=== PATIENT | male | born 1950 | race Caucasian/White ===

== ENCOUNTER 2018-08-07 19:50 | Inpatient (IN) | payer OTHER ==
[~2018-08-07] VITALS: Ht 175.3 cm; Wt 112.2 kg
--- NOTE | 2018-08-07 20:09 | NUR ---
PER MEDIC PT WAS A FACILITY AND STS THAT HIS ANKLE EDEMA HAS BEEN INCREASING. PT STS THAT HE WAS AT [place] THREE DAYS AGO FOR EDEMA. PT STS THAT HE FEELS HE IS NOT BEING TAKEN CARE OF AT PREVIOUS HOME AND HOSPITALS. PT STS THAT HE HAS BEEN HAVING INCREASING PEDAL EDEMA. +CAP REFILL IN BILATERAL LOWER EXTREMITES. PT STS THAT HE IS HAVING "ALL OVER BODY PAIN". PT STS THAT HIS MAIN CONCERN IS THAT HIS ANKLES ARE SWELLING. PT HAS SOME LABORED BREATHING AND PLACED ON NC 3L. PT STS THAT HE HAS SOME DIZZINESS BUT THAT IT IS "NORMAL" FOR HIM. PT DENIES ANY TEMP. PT HAS HAD A NON PRODUCTIVE COUGH. PT STS HE IS ON OXYGEN AT HOME APPROX 2-3L. PT HAS ECCHYMOSIS NOTED ON RIGTH AC. BANDAGE ON LEFT ANTERIOR FOOT. DR. GRAHAM AT BEDSIDE FOR MSE.
--- NOTE | 2018-08-07 20:28 | NUR ---
LAB AT BEDSIDE. EMT AT BEDSIDE.
--- NOTE | 2018-08-07 20:42 | NUR ---
SEROUS FLUID NOTED ON BILATER ANKLES. PT STS THAT THE FLUID HAS BEEN COMING FROM HIS SKIN FOR THREE DAYS. ABDOMINAL DISTENTION NOTED. NO ECCHYNOSIS NOTED ON ABDOMEN.
[2018-08-07] MEDS ORDERED: ZITHROMAX Z-PA250 MG PO (20:47)
[2018-08-07] MEDS ORDERED: APAP500 MG PO (20:47)
[2018-08-07] MEDS ORDERED: DILAUDID2 MG PO (20:48)
[2018-08-07] MEDS ORDERED: TRAMADOL HCL50 MG PO (20:48)
[2018-08-07] MEDS ORDERED: ATROVENT H0.017 MG/1 (20:50)
[2018-08-07] MEDS ORDERED: ALBUTEROL0.63 MG/3 (20:50)
[2018-08-07 20:51] LABS: BASOPHIL % 0.4 % (0-2); PLATELET COUNT 126 x10^3mcL (130-400)
[2018-08-07] MEDS ORDERED: ELIQUIS2.5 MG PO (20:51)
[2018-08-07] MEDS ORDERED: LIPI10 PO (20:53)
[2018-08-07] MEDS ORDERED: B-121000 MC4 PO (20:54)
[2018-08-07] MEDS ORDERED: VAL10 PO (20:55)
[2018-08-07] MEDS ORDERED: STOOL SOFTENER PO (20:56)
[2018-08-07] MEDS ORDERED: ISOSORBIDE MONO30 MG PO (20:56)
[2018-08-07] MEDS ORDERED: LASIX20 MG PO (20:56)
[2018-08-07] MEDS ORDERED: LACTULOSE10 GM/152 PO (20:56)
[2018-08-07] MEDS ORDERED: LATANOPROST2.5 ML OP (20:57)
[2018-08-07] MEDS ORDERED: CLARITIN10 MG PO (20:57)
[2018-08-07] MEDS ORDERED: MULTI-VITAMINS1 TAB PO (20:58)
[2018-08-07] MEDS ORDERED: TOPROL XL25 MG PO (20:58)
[2018-08-07] MEDS ORDERED: LOSARTAN POTASS25 M1 PO (20:58)
[2018-08-07] MEDS ORDERED: PROTONIX40 MG PO (20:59)
[2018-08-07] MEDS ORDERED: NITROGLYCERIN0.4 MG SL (20:59)
[2018-08-07 21:00] LABS: CALCIUM 8.2 mg/dL (8.5-10.1); CARBON DIOXIDE 39.5 mmol/L (21-32); CHLORIDE SERUM 104 mmol/L (98-107); CREATININE SERUM 0.8 mg/dL (0.7-1.3); GFR1 > 60 mL/min; GLUCOSE SERUM 177 mg/dL (74-106); POTASSIUM SERUM 3.9 mmol/L (3.5-5.1); SODIUM SERUM 145 mmol/L (136-145)
[2018-08-07] MEDS ORDERED: CARAFATE1 GM PO (21:00)
[2018-08-07] MEDS ORDERED: PREDNISONE20 MG PO (21:00)
[2018-08-07 21:05] LABS: ALKALINE PHOSPHATASE 55 U/L (46-116); ALT/SGPT 65 U/L (16-63); AST/SGOT 12 U/L (15-37); BILIRUBIN TOTAL 0.2 mg/dL (0.20-1.00)
[2018-08-07 21:07] LABS: ALBUMIN 2.9 g/dL (3.4-5.0); TOTAL PROTEIN, SERUM 5.5 g/dL (6.4-8.2)
--- NOTE | 2018-08-07 21:12 | NUR ---
PT RECEIVING BREATHING TREATMENT PER REQUEST. PT STS HE IS "ABLE TO GET AIR IN HIS LUNGS NOW". UPON AUSCULTATION PT HAS CLEAR BILATERAL LUNG SOUNDS. WILL CONTINUE TO MONITOR. VSS.
--- NOTE | 2018-08-07 22:35 | NUR ---
REPORT GIVEN TO ROLDAN SMITH TO ASSUME CARE OF PT.
[2018-08-07 23:05] LABS: microscopic required? NO
[2018-08-07 23:06] VITALS: BP 128/66
[2018-08-07 23:06] LABS: PHOSPHOROUS 2.5 mg/dL (2.5-4.9)
[2018-08-07 23:07] LABS: CHOLESTEROL/HDL RATIO 1.6
--- NOTE | 2018-08-07 23:09 | NUR ---
RECEIVED PT FROM ED VIA MAX. ORIENTED PT TO ROOM AND SURROUNDINGS. IV NOTED TO LAC PATENT AND INTACT. TELE 15 PLACED ON PT READING STA. INSTRUCTED PT ON THE USE OF CALL LIGHT FOR ASSISATNCE. ENDORSED PT TO PRIMARY NURSE ROLDAN
--- NOTE | 2018-08-07 23:12 | NUR ---
PT C/O PAIN, OFFERED PT NORCO PO, PT REFUSES STATES "IT MAKES ME SICK", WHEN ASKED PT WHAT HE USUALLY TAKES FOR PAIN, PT RESPONDS "DILAUDID AND MORPHINE". WILL NOTIFY DR. JONES AND CLARIFY IVF ORDERS.
[2018-08-07 23:15] LABS: UA SPECIFIC GRAVITY 1.015 (1.005-1.035); urine erythrocyte NEGATIVE (NEGATIVE)
[2018-08-07 23:22] VITALS: Ht 175.3 cm; Wt 112.2 kg
[2018-08-08] LABS: AMPHETAMINE QUAL UR NONE DETECTED (See below)
--- NOTE | 2018-08-08 00:05 | NUR ---
PT REFUSED DILAUDID PO, STATES "IT MAKES ME SICK IT HAS TO BE CRUSHED AND PUSHED", TOLD PT IT WAS MEANT FOR PO AND NOT IVP. DR. JONES MADE AWARE. WAITING FOR NEW ORDERS.
--- NOTE | 2018-08-08 00:17 | NUR ---
PT MEDICATED PER EMAR WITH MORPHINE IVP ONCE. PT ASKED WHEN NEXT DOSE OF MORPHINE WILL BE READY, TOLD PT THAT ORDER WAS FOR ONE TIME DOSE AND ENCOURAGED PT TO TRY DILAUDID PO FOR PAIN, PT STILL REFUSES.
[2018-08-08 05:25] VITALS: BP 156/63
--- NOTE | 2018-08-08 05:48 | NUR ---
PT REQUESTING "ANOTHER PAIN SHOT". DR. JONES MADE AWARE. PT ALSO ON REGULAR DIET PER REQUEST, CLARIFIED ORDER WITH DR. JONES WHO SAID IT WAS OKAY.
--- NOTE | 2018-08-08 06:09 | NUR ---
PT BECOMING AGITATED, STATES "I'M IN A LOT OF PAIN AND I NEED IT NOW". DR. HAWKINS CALLED AND MADE AWARE.
[2018-08-08 06:42] LABS: T3 TOTAL 0.88 ng/mL
--- NOTE | 2018-08-08 07:00 | NUR ---
RECEIVED PT FROM INTENSIVE CARE UNIT REGISTERED NURSE NURSE. PT SITTING AT EDGE OF BED, AOX4, RESP EVEN AND LABORED ON NC AT 3 L/MIN. C/O OF CHEST PAIN ON INSPIRATION AND SOB, WILL CARRY OUT MED ORDERS FOR PAIN. ON TELE 15 SHOWING NSR, HR: 87. SALINE LOCK TO LAC W/ NO ERYTHEMA OR EDEMA. BED IN LOWEST POSITION AND CALL LIGHT WITHIN REACH. WILL CONTINUE TO MONITOR.
[2018-08-08 07:20] LABS: FREE T4 0.9 ng/dL (0.76-1.46); FREE THYROXINE INDEX 2.2 ug/dL (1.4-4.5); T4(THYROXINE) 5.5 ug/dL (4.7-13.3)
[2018-08-08 08:36] VITALS: BP 140/61
--- NOTE | 2018-08-08 10:51 | NUR ---
ECHOCARDIOGRAM COMPLETED.
[2018-08-08 12:47] VITALS: BP 108/60
--- NOTE | 2018-08-08 15:34 | NUR ---
PT REFUSED USV BILAT LOWER EXTRM. PAGED DR. JONES. NO NEW ORDERS AT THIS TIME.
[2018-08-08 16:39] VITALS: BP 121/53
--- NOTE | 2018-08-08 19:57 | NUR ---
RECEIVED PT FROM PREVIOUS SHIFT. CURRENTLY SITTING UP AT EDGE OF BED. NO C/O PAIN AT THIS TIME. BREATHING E/U ON 3L OXYGEN NC. AAO. ABLE TO MAKE NEEDS KNOWN. TELE #15 SHOWING NSR WITH ELEVATED T-WAVE, DENIES CP. NO S/S ACUTE DISTRESS. BLE +4 EDEMA NOTED. CALL LIGHT WITHIN REACH. SAFETY MEASURES IN PLACE. WILL CONTINUE TO MONITOR.
[2018-08-08 20:45] VITALS: BP 118/49
--- NOTE | 2018-08-08 20:53 | NUR ---
RAGHAV JENKINS CONTACTED TO OBTAIN MEDICATION LIST.
--- NOTE | 2018-08-09 00:26 | NUR ---
PT MEDICATED PER EMAR FOR 10/10 BLE PAIN. NO S/S ACUTE DISTRESS. CALL LIGHT WITHIN REACH. WILL CONTINUE TO MONITOR.
--- NOTE | 2018-08-09 06:10 | NUR ---
PT REFUSED TO TAKE AM MEDS. UNCOOPERATIVE WITH CARE AT THIS TIME.
[2018-08-09 06:42] VITALS: BP 128/46
--- NOTE | 2018-08-09 07:05 | NUR ---
RECEIVED PT FROM FOUNDER CHAIRMAN AND CHIEF CREATIVE OFFICER NURSE. PT SITTING AT EDGE OF BED, AOX4, RESP EVEN AND LABORED ON NC AT 3 LPM. C/O OF GENERALIZED BODY PAIN BUT TOLERABLE AT THIS TIME. REMINDED PT ON FLUID RESTRICTIONS FOR STRICT I & O MONITORING, COMPLIANT W/ INSTRUCTIONS. ON TELE 15 SHOWING SR W/ ELEVATED T-WAVE, HR: 77. SALINE LOCK TO LAC W/ NO ERYTHEMA OR EDEMA. BED IN LOWEST POSITION AND CALL LIGHT WITHIN REACH. WILL CONTINUE TO MONITOR.
[2018-08-09 08:50] VITALS: BP 135/51
--- NOTE | 2018-08-09 11:40 | NUR ---
PT SITTING AT EDGE OF BED, AOX4, RESP E/U ON NC AT 3 LPM. MEDICATED ORDERED FOR BLE PAIN RATED 8/10. 660 ML OF URINE DRAINED FROM URINAL AT THIS TIME. STRICT I & O MAINTAINED. BED IN LOWEST POSITION AND CALL LIGHT WITHIN REACH. WILL CONTINUE TO MONITOR.
[2018-08-09 12:16] VITALS: BP 108/46
--- NOTE | 2018-08-09 12:30 | NUR ---
PT RESTING IN BED, AOX4, RESP E/U ON NC AT 2 LPM. REPORTED MIDLINE CHEST PAIN RATED 9/10, DENIES HEADACHE OR PALPITATIONS. MEDICATED ORDERED. SWELLING AND ECCHYMOSIS TO VENIPUNCTURE SITE AT [facility] NOTED, ELEVATED EXTREMITY AND APPLIED ICE PACK. BED IN LOWEST POSITION AND CALL LIGHT WITHIN REACH. WILL CONTINUE TO MONITOR.
[2018-08-09 17:05] VITALS: BP 114/42
--- NOTE | 2018-08-09 18:09 | NUR ---
PT SITTING AT EDGE OF BED HAVING DINNER, AOX4, RESP E/U ON NC AT 3 LPM. REPORTED MILD RELIEF OF PAIN TO LEGS RATED 6/10, PAIN TRIGGERED WHEN TOUCH/PRESSURE APPLIED TO AREA, OTHERWISE TOLERABLE. IV SALINE LOCK W/ NO ERYTHEMA OR EDEMA. BED IN LOWEST POSITION AND CALL LIGHT WITHIN REACH. WILL ENDORSE TO ONCOMING NURSE.
--- NOTE | 2018-08-09 19:41 | NUR ---
RECEIVED PT FROM PREVIOUS SHIFT. PT A/OX4. DENIES PAIN. DENIES SOB ON RA. IV PATENT AND FLUSHING WELL. CALL LIGHT WITHIN REACH, BED IN LOW POSITION. WILL CONTINUE TO MONITOR.
[2018-08-09 19:49] VITALS: BP 126/45
--- NOTE | 2018-08-09 20:01 | NUR ---
PT PLACED ON O2 AT 3LNC PER PATIENT'S REQUEST
--- NOTE | 2018-08-10 03:15 | NUR ---
PT RESTING IN NO ACUTE DISTRESS. RR EVEN AND UNLABORED. CALL LIGHT WITHIN REACH, BED IN LOW POSITION. WILL CONTINUE TO MONITOR.
[2018-08-10 06:12] VITALS: BP 118/72
[2018-08-10 06:54] LABS: PLATELET COUNT 170 x10^3mcL (130-400)
[2018-08-10 07:11] LABS: CALCIUM 9.4 mg/dL (8.5-10.1); CHLORIDE SERUM 98 mmol/L (98-107); CREATININE SERUM 0.8 mg/dL (0.7-1.3); GFR1 > 60 mL/min; GLUCOSE SERUM 167 mg/dL (74-106); POTASSIUM SERUM 4.3 mmol/L (3.5-5.1); SODIUM SERUM 144 mmol/L (136-145)
[2018-08-10 07:24] LABS: CARBON DIOXIDE 41.1 mmol/L (21-32)
--- NOTE | 2018-08-10 07:30 | NUR ---
AAO TIMES 4. PLEASANT, COOPERATIVE. TELE # 15 SR. LUNGS DIMINISHED LEFT SIDE. O2 SAT ON RA 100%. BS'S ACTIVE TIMES 4. OBESE. +3 EDEMA BLE. PERIPHERAL PULSES PALPABLE. C/O GENERALIZED BODY PAIN FROM NECK DOWN, IS VERY TIME ORIENTED ON GETTING HIS DILAUDID IVP ON TIME EVERY 4 HOURS, HE SAYS HE TAKES DILAUDID PO AT HOME. HE STATES THE ACCOUNT RESOLUTION ANALYST WAS GOING TO INCREASE HIS DILAUDID TO 2 MG IVP, I TALKED TO AILEEN AND SHE IS GOING TO CHECK WITH THE PHYSICIAN BEFORE SHE INCREASED HIS MEDICATIONS, BECAUSE HE WILL BE GOING TO AN LTAC AND THE MEDS HAVE TO BE TRENDING DOWN IN STRENGTH BEFORE DISCHARGE.
[2018-08-10 07:39] LABS: BASOPHIL % 0 % (0-2); RED CELL DISTRIBUTION WIDTH 15.9 % (11.5-14.5)
[2018-08-10 07:46] VITALS: BP 120/81
--- NOTE | 2018-08-10 13:58 | NUR ---
1. Recommend CCHO, low fat diet. (Patient refusing this change)
--- NOTE | 2018-08-10 13:58 | NUR ---
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 Pt states recent hospitalization 3 days prior at [facility] for similar complaints and claims he was sent home "too early," expressing frustration with his treatment at both [facility] and the [facility]. RDN Visit (08/10): FNS received consult for 'moderate malnutrition w/obesity' on 08/09. Patient was alert and oriented and said that he is going to anyways and so he does not want to follow any sort of diet restriction. He only wants to do two things eat and sleep. He also said that the food provided to him is not enough for him. Patient was absolutely not ready to listen to any diet education or the need to change his current dietary habits. Patient is also not willing to consume any nutritional supplements. Patient refused to accept that his A1C is high and he is diabetic. Spoke with CANVAS WORKER APPRENTICE Michelle about patient's reluctance to change diet order. CANVAS WORKER APPRENTICE said to document that patient refused to change diet order. Problem with: N/V/D/C: no Problems with: Chewing/Swallowing: no Current appetite: good Recent wt change: patient said that he is on Lasix and so has lost fluid weight %wt change: N/A Vitamin/Supplement use: none Special diet at home: regular Physical activity: none Nutrition education given: Patient declined Food-drug interactions: Colace- high fiber w/5150-8116 ml fluids Education given: no Estimated Nutritional Needs Based on adjusted body weight 87 kg Energy: 8648-9338 kcal/d (25-30 kcal/kg) maintenance Protein: 87-104 g/d (1.0-1.2 g/kg)- preserve LBM Fluid: 3863-4514 ml/d (1 ml/kcal) or per doctor Nutrition Diagnosis 1. Not ready for diet/lifestyle change related to unwilling to learn information as evidenced by denial of need for food and nutrition related changes. Intervention 1. Recommend CCHO, low fat diet. (Patient refusing this change) Monitor/Evaluate Goal: PO intake at least 75% of estimated needs Monitor: PO intake, Labs, GI function F/U in 3-5 days as moderate risk 7/4-6
[2018-08-10 17:14] VITALS: BP 140/64
--- NOTE | 2018-08-10 18:33 | NUR ---
AAO TIMES 4. PLEASANT, COOPERATIVE. MED SURG PATIENT. NO C/O PAIN AT THIS TIME. VS'S STABLE. NO SOB. IV SITE LAC PATENT, CDI.
--- NOTE | 2018-08-10 20:00 | NUR ---
A/A/O X4. DENIES DIZZINESS AND HEADACHE. FINE CRACKLES NOTED MILO LUNGS. BREATHING EVEN AND LABORED ON 2L NC. DENIES CHEST PAIN AND PRESSURE. BOWEL SOUNDS ACTIVE. NO C/O N/V AND ABD PAIN. WEEPING NOTED ON TOP OF THE LEFT FOOT CINDA. PITTING EDEMA NOTED ON BLE. IV INTACT ON THE LAC. MADE PT COMFORTABLE. PLACED CALL LIGHT WITH IN REACH. WILL CONTINUE TO MONITOR.
[2018-08-10 20:52] VITALS: BP 149/60
--- NOTE | 2018-08-10 21:03 | NUR ---
PT C/O GENERALIZED PAIN. GAVE PT DILAUDID IVP. PT TOLERATED IT WELL. WILL CONTINUE TO MONITOR.
--- NOTE | 2018-08-11 01:21 | NUR ---
PT RESTING WITH EYES CLOSED. NO DISTRESS AND DISCOMFORT NOTED. WILL CONTINUE TO MONITOR.
--- NOTE | 2018-08-11 05:25 | NUR ---
PT C/O GENERALIZED PAIN. GAVE PT DILAUDID IVP. PT TOLERATED IT WELL. WILL CONTINUE TO MONITOR.
[2018-08-11 06:00] VITALS: BP 143/79
[2018-08-11 07:13] LABS: PLATELET COUNT 166 x10^3mcL (130-400)
[2018-08-11 07:35] LABS: CALCIUM 8.9 mg/dL (8.5-10.1); CARBON DIOXIDE 38.9 mmol/L (21-32); CHLORIDE SERUM 98 mmol/L (98-107); CREATININE SERUM 0.9 mg/dL (0.7-1.3); GFR1 > 60 mL/min; GLUCOSE SERUM 201 mg/dL (74-106); POTASSIUM SERUM 3.8 mmol/L (3.5-5.1); SODIUM SERUM 139 mmol/L (136-145)
[2018-08-11 07:47] LABS: BASOPHIL % 0 % (0-2); RED CELL DISTRIBUTION WIDTH 16.1 % (11.5-14.5)
[2018-08-11 08:36] VITALS: BP 136/57
[2018-08-11 08:55] VITALS: BP 136/57
--- NOTE | 2018-08-11 10:23 | NUR ---
AAO TIMES 4. NO TELE, MED SURG PATIENT. BS'S ACTIVE TIMES 4. ANDERSON STRONG. OBESE. BRP SELF, SOB WITH TOO MUCH ACTIVITY. LUNGS CTA BUL, DIMINISHED BASES. JO2 SAT 96% ON RA. STATES HE HAD A BM YESTERDAY, REFUSED THE LACTULOSE PO. +3 EDEMA BLE. PERIPHERAL PULSES PALPABLE. ON ELIQUIS PO. COOPERATIVE AND PLEASANT. C/O GENERALIZED PAIN, HE IS ON DILAUDID PO AT HOME. ASKED FOR DILAUDID IVP ONLY, FOR C/O GENERALIZED PAIN 08/19 AND GIVEN AT 0932, AT 1002 HE STATES RELIEF OF PAIN 03/22.
[2018-08-11 17:03] VITALS: BP 113/47
--- NOTE | 2018-08-11 17:21 | NUR ---
PHYSICAL THERAPY NOTE ATTEMPTED FOR FOLLOW UP PHYSICAL THERAPY SESSION. PATIENT REFUSED. PATIENT EDUCATED ABOUT THE IMPORTANCE OF FUNCTIONAL MOB TRAINING.
--- NOTE | 2018-08-11 17:47 | NUR ---
AAO TIMES 4. NO TELE. PLEASANT, COOPERATIVE. NO C/O PAIN. AMBULATORY. +3 EDEMA BLE. I REMINDED HIM TO MAINTAIN HIS FLUID RESTRICTION AND HE SAYS HE HAS. IV SITE LAC PATENT, CDI. HE SITS UP SOMETIMES AT THE SIDE OF BED, AND ALSO LAYS IN BED WITH HIS FEET ELEVATED. STELLA MANCILLA CAME IN THIS AFTERNOON TO SEE IF HE QUALIFIES FOR THEIR FACILITY.
--- NOTE | 2018-08-11 19:10 | NUR ---
REC'D PT FROM DAY NURSE. PT RESTING IN BED. SLEEPING. AWAKENS WITH VERBAL STIMULI. DROWSY. AAOX4, SPEECH CLEAR, FOLLOWS COMMANDS. MED SURG, NO TELE. DNEIES CP, DIZZINESS, OR PALPITATIONS. DENIES RESP DISTRESS OR SOB. BREATHING EVEN/UNLABORED ON 3L O2 VIA NC, SPO2 98%. PT STATES HE IS ON HOME O2- 3L. PITTING EDEMA TO BLE WEEPING MINIMAL SEROUS FLUID. BLE ELEVATED WITH PILLOWS. ABD SOFT/DISTENDED. REPORTS TENDERNESS WITH PALPATION. DENIES PAIN AT REST. VOIDING FREELY USING URINAL. GEN WEAKNESS. WC AT HOME. IV TO LAC FLUSHED AND PATENT, SITE WNL. CALL LIGHT WITHIN REACH, BED AT LOWEST POSITION. WILL CONTINUE TO MONITOR.
--- NOTE | 2018-08-11 20:50 | NUR ---
PT DENIES CPAP AT THIS TIME. STATES WILL CALL WHEN HE IS READY TO SLEEP.
[2018-08-11 21:11] VITALS: BP 108/51
--- NOTE | 2018-08-12 00:43 | NUR ---
PT RESTING IN BED WITH EYES CLOSED. NO SIGNS OF DISTRESS NOTED. BREATHING EVEN/UNLABORED ON 3L O2 VIA NC. BLE ELEVATED WITH PILLOWS. CALL LIGHT WITHIN REACH, BED AT LOWEST POSITION. WILL CONTINUE TO MONITOR.
--- NOTE | 2018-08-12 02:19 | NUR ---
PT C/O BLE PAIN 10/20. DILAUDID PO GIVEN PER ORDER. WILL MONITOR FOR RELIEF.
--- NOTE | 2018-08-12 06:08 | NUR ---
PT RESTING IN BED WITH EYES CLOSED. BREATHING EVEN/UNLABORED ON 3L NC. DENIES SOB. DENIES PAIN AT THIS TIME. BS 166. INSULIN GIVEN WITH SNACK PER REQUEST. BLE STILL REMAINS EDEMATOUS WEEPING SMALL AMT OF SEROUS FLUID. NO SIGNIFICANT CHANGES DURING SHIFT. CALL LIGHT WITHIN REACH, BED AT LOWEST POSITION. WILL ENDORSE TO DAY NURSE.
[2018-08-12 06:15] VITALS: BP 124/65
[2018-08-12 06:37] LABS: PLATELET COUNT 154 x10^3mcL (130-400)
[2018-08-12 06:43] LABS: BASOPHIL % 0 % (0-2); RED CELL DISTRIBUTION WIDTH 15.8 % (11.5-14.5)
[2018-08-12 06:54] LABS: CALCIUM 9.3 mg/dL (8.5-10.1); CHLORIDE SERUM 99 mmol/L (98-107); CREATININE SERUM 0.9 mg/dL (0.7-1.3); GFR1 > 60 mL/min; GLUCOSE SERUM 187 mg/dL (74-106); POTASSIUM SERUM 3.9 mmol/L (3.5-5.1); SODIUM SERUM 142 mmol/L (136-145)
[2018-08-12 07:00] LABS: CARBON DIOXIDE 42.4 mmol/L (21-32)
--- NOTE | 2018-08-12 07:30 | NUR ---
PT ENDORSE TO ME THIS MORNING. RESTING IN BED, AA/O X4, BREATHING EVEN AND UNLABORED ON 3 LNC, NO ACUTE RESP DISTRESS OR SOB NOTED. SPEECH CLEAR AND FOLLOWING ALL COMMANDS. MEDSURG, DENIES ANY CP OR PRESSURE OR DIZINESS AT THIS TIME. VOIDS FREELY. AMB WITH GEN WEAKNESS/ KNOWS TO CALL FOR ASSIST. BOWEL SOUNDS ACTIVE IN ALL FOUR QUADS, PER PT PASSING GAS. PITTING EDEMA NOTED BLE WEEPING MINIMAL SEROUS FLUID/ BLE EVEVATED WITH PILLOWS. IV TO THE LAC INTACT AND PATENT, NO REDNESS OR SWELLING NOTED.CALL LIGHT IN REACH. BED IN LOW POSTION. WILL CONTINUE TO MONITOR.
--- NOTE | 2018-08-12 08:50 | NUR ---
PT C/O BLE LEG PAIN /10 , MEDICATED PER EMAR .
[2018-08-12 09:01] VITALS: BP 136/58
[2018-08-12 13:06] VITALS: BP 136/58
[2018-08-12] MEDS ORDERED: LEADER NATURA500 MCG PO (13:47)
[2018-08-12] MEDS ORDERED: SOL40I IV (13:47)
[2018-08-12] MEDS ORDERED: HUMULIN R100 U/1 M1 SC (13:47)
[2018-08-12] MEDS ORDERED: TUMS PO (13:49)
[2018-08-12] MEDS ORDERED: LAC15L PO (13:50)
[2018-08-12] MEDS ORDERED: BG FS (13:50)
[2018-08-12] MEDS ORDERED: AMB5 PO (13:50)
[2018-08-12] MEDS ORDERED: ULT50 PO (13:51)
[2018-08-12] MEDS ORDERED: DIL2 PO (13:52)
[2018-08-12] MEDS ORDERED: ACETAMINOPHEN-H1 TA1 PO (13:53)
[2018-08-12] MEDS ORDERED: COZ25 PO (13:53)
[2018-08-12] MEDS ORDERED: ECO81 PO (13:53)
[2018-08-12] MEDS ORDERED: IPRATROPIUM BROM3 M2 HHN ×2 (13:54)
[2018-08-12] MEDS ORDERED: ELIQUIS2.5 MG PO (13:55)
[2018-08-12] MEDS ORDERED: L40I IV (14:08)
[2018-08-12] MEDS ORDERED: COL100 PO (14:08)
[2018-08-12] MEDS ORDERED: ZOFI IV (14:08)
[2018-08-12] MEDS ORDERED: TYL325 PO (14:08)
--- NOTE | 2018-08-12 14:20 | NUR ---
PT C/O OF BLE PAIN 07/20, MEDICATED PER EMAR. TOLERATED 100% OF HIS LUNCH. WILL CONTINUE TO MONITOR.
--- NOTE | 2018-08-12 14:47 | NUR ---
CALLED [facility] TO GIVE REPORT, SANITATION SUPERVISOR STATED THE PHONES ARE DOWN AND NEED TO CALL BACK AFTER 1500.
--- NOTE | 2018-08-12 15:00 | NUR ---
EXPLAINED TRANSFER TO PT, PT AGREED AND SIGNED ALL DOCUMENTS. WAITING ON MEDICARE SPECIALIST FROM BLS. WILL CONTINUE TO MONITOR.
--- NOTE | 2018-08-12 15:56 | NUR ---
REPORT GIVEN TO SINTIA SMITH FROM [place]
--- NOTE | 2018-08-12 16:05 | NUR ---
S TRANSPORT IS HERE TO ALARM SECURITY OR SURVEILLANCE MONITOR PT. PT IS BREATHING EVEN AND UNLABORED ON 3L NC, NO ACUTE RESP DISTRESS OR SOB NOTED. IV TO LAC INTACT AND PATENT/ HEPLOCKED. PT DENIES ANY CP OR PRESSURE/ MEDICATED PER EMAR FOR BLE DISCOMFORT. PT BRING TRANSFERED TO [place] TO CONTINUE CARE.
== END 2018-08-12 16:17 | DRG 291 ==
LOC: ED 19:50 → DU 22:12 → MU 22:12 → DU 22:35 → MU 08-10 09:44
PROVIDERS: Emergency Medicine; Internal Medicine; ADMIT Internal Medicine
DX: I11.0 Hypertensive heart disease with heart failure (principal); J96.00 Acute respiratory failure, unspecified whether with hypoxia or hypercapnia; E44.0 Moderate protein-calorie malnutrition; J44.1 Chronic obstructive pulmonary disease with (acute) exacerbation; I50.43 Acute on chronic combined systolic (congestive) and diastolic (congestive) heart failure; E11.65 Type 2 diabetes mellitus with hyperglycemia; G89.29 Other chronic pain; I25.10 Atherosclerotic heart disease of native coronary artery without angina pectoris; H40.9 Unspecified glaucoma; E11.9 Type 2 diabetes mellitus without complications; F17.210 Nicotine dependence, cigarettes, uncomplicated; E78.5 Hyperlipidemia, unspecified; I25.2 Old myocardial infarction; E66.9 Obesity, unspecified; Z68.36 Body mass index [BMI] 36.0-36.9, adult; Z86.718 Personal history of other venous thrombosis and embolism; Z86.711 Personal history of pulmonary embolism; Z79.01 Long term (current) use of anticoagulants; Z95.5 Presence of coronary angioplasty implant and graft; Z79.84 Long term (current) use of oral hypoglycemic drugs; Z91.14 Patient's other noncompliance with medication regimen; Z66 Do not resuscitate
CPT/HCPCS: 82962; 83880; 84439; 97110-GP; 97530-GP; 99406; G0378; J1120; J1170; J1940; J2270; J2405; J2920; J2930; J7030; J7613; J7620; J7644; Q0092